=== PATIENT | female | born 1950 | race Caucasian/White ===

== ENCOUNTER 2023-11-05 14:01 | Emergency (ER) | payer MEDICARE, OTHER ==
[~2023-11-05] VITALS: Ht 167.6 cm; Wt 56.1 kg
[2023-11-05 14:09] VITALS: BP 193/71; PULSE 87; RESP 18; O2SAT 98
[2023-11-05] MEDS ORDERED: ketorolac trometh. 30mg/ml inj. IM ONE (14:15)
[2023-11-05] MEDS: ketorolac tromethamine 15mg/ml inj. IM ONE (14:49)
[2023-11-05] MEDS: dexamethasone sod phosphate 10mg/ml inj IM STA (14:49)
[2023-11-05] MEDS: ketorolac trometh. 30mg/ml inj. IM ONE (15:19)
[2023-11-05 15:52] VITALS: TEMP 97.6
== END 2023-11-05 15:53 | disposition home or self-care (01) ==
LOC: ER 14:02
DX: S39.011A Strain of muscle, fascia and tendon of abdomen, initial encounter (principal); R10.32 Left lower quadrant pain; M25.552 Pain in left hip; W19.XXXA Unspecified fall, initial encounter; Y93.89 Activity, other specified; Y92.89 Other specified places as the place of occurrence of the external cause; Y99.8 Other external cause status
CPT/HCPCS: 73502; 96372; 99283; J1885

== ENCOUNTER 2024-03-13 17:21 | Emergency (ER) | payer MEDICARE, OTHER ==
[~2024-03-13] VITALS: Ht 167.6 cm; Wt 55.3 kg
[2024-03-13 17:25] VITALS: BP 175/69; PULSE 85; RESP 16; O2SAT 96
[2024-03-13 18:23] VITALS: TEMP 98.3
== END 2024-03-13 18:27 | disposition home or self-care (01) ==
LOC: ER 17:22
DX: S76.312A Strain of muscle, fascia and tendon of the posterior muscle group at thigh level, left thigh, initial encounter (principal); W01.0XXA Fall on same level from slipping, tripping and stumbling without subsequent striking against object, initial encounter; Y93.89 Activity, other specified; Y92.89 Other specified places as the place of occurrence of the external cause; Y99.8 Other external cause status
CPT/HCPCS: 99281

== ENCOUNTER 2024-06-20 05:41 | Emergency (ER) | payer MEDICARE, OTHER ==
[~2024-06-20] VITALS: Ht 167.6 cm; Wt 47.6 kg
[2024-06-20 05:52] VITALS: BP 136/61; PULSE 82; TEMP 96.8; O2SAT 96
[2024-06-20 07:23] VITALS: RESP 16
[2024-06-20 07:59] LABS: BASOPHILS % (AUTO) 0.5 % (0-1); EOSINOPHILS % (AUTO) 0.1 % (0-6); HEMATOCRIT 36.3 % (35.0-45.0); HEMOGLOBIN 12.5 g/dl (12.0-16.0); LYMPHOCYTES # (AUTO) 1.4 X10'3 (1.1-4.8); LYMPHOCYTES % (AUTO) 15.7 % (21-51); MEAN CORPUSCULAR HEMOGLOBIN 31.1 PG (27.0-31.0); MEAN CORPUSCULAR HGB CONC 34.4 g/dL (33.0-36.5); MEAN CORPUSCULAR VOLUME 90.5 FL (78-98); MEAN PLATELET VOLUME 7.2 FL (7.4-10.4); MONOCYTES # (AUTO) 1.3 X10'3 (0-0.9); MONOCYTES % (AUTO) 14.7 % (2-12); NEUTROPHILS # (AUTO) 6.3 X10'3 (1.8-7.7); PLATELET COUNT 270 X10'3 (140-440); RED CELL DISTRIBUTION WIDTH 12.5 % (11.5-14.5); WHITE BLOOD COUNT 9.1 X10'3 (4.5-11.0)
[2024-06-20] MEDS ORDERED: iohexol 350MG/ML 100ml bottle IV ONE ×2 (08:13→13:57)
[2024-06-20 08:23] LABS: ALANINE AMINOTRANSFERASE 16 U/L (12-78); ALBUMIN 3.6 G/DL (3.4-5.0); ALKALINE PHOSPHATASE 68 IU/L (46-116); ANION GAP 7 (8-16); ASPARTATE AMINO TRANSFERASE 13 U/L (10-37); BILIRUBIN,TOTAL 0.5 MG/DL (0.1-1.0); BLOOD UREA NITROGEN 10 MG/DL (7-18); BUN/CREATININE RATIO 15.6 (10.0-20.0); CALCIUM 9.1 MG/DL (8.5-10.1); CHLORIDE 103 MMOL/L (99-107); CREATINE KINASE 68 U/L (26-192); CREATININE 0.64 MG/DL (0.40-0.90); GLUCOSE 119 MG/DL (70-104); LIPASE 50 U/L (16-77); MAGNESIUM 2.3 MG/DL (1.5-2.4); POTASSIUM 4.4 MMOL/L (3.5-5.1); SODIUM 138 MMOL/L (135-145); TOTAL CARBON DIOXIDE 27.8 MMOL/L (24-32); TOTAL PROTEIN 7.3 G/DL (6.4-8.2); eCRCL 61 ML/MIN; eGFR > 90 ML/MIN
[2024-06-20] MEDS ORDERED: CefTRIAXone 2gm/NS 100ml IVPB 50 ML IV ONE (09:45)
[2024-06-20] MEDS ORDERED: AMOX-117 PO (09:45)
[2024-06-20] MEDS ORDERED: AZIT-164 PO (09:45)
[2024-06-20] MEDS ORDERED: CefTRIAXone 2gm/D5W 50ml BAG 50 ML IV ONE (09:54)
[2024-06-20] MEDS: azithromycin/NS 500mg/250ml 250 ML IV ONE (10:12)
[2024-06-20] MEDS: CefTRIAXone 2gm/D5W 50ml BAG 50 ML IV ONE (10:20)
== END 2024-06-20 12:13 | disposition home or self-care (01) ==
LOC: ER 05:42
DX: M54.6 Pain in thoracic spine (principal); J18.9 Pneumonia, unspecified organism
CPT/HCPCS: 36415; 71275; 74174; 80053; 82550; 83690; 83735; 84484; 85025; 85379; 93005; 96365; 96368; 99285; J0456; J0696; Q9967

== ENCOUNTER 2024-07-15 14:07 | Emergency (ER) | payer MEDICARE, OTHER ==
[~2024-07-15] VITALS: Ht 167.6 cm; Wt 55.9 kg
[2024-07-15 15:22] LABS: BASOPHILS # (AUTO) 0.1 X10'3 (0-0.2); BASOPHILS % (AUTO) 0.7 % (0-1); EOSINOPHILS # (AUTO) 0.4 X10'3 (0-0.9); EOSINOPHILS % (AUTO) 4.9 % (0-6); HEMATOCRIT 39.5 % (35.0-45.0); HEMOGLOBIN 13.1 g/dl (12.0-16.0); LYMPHOCYTES # (AUTO) 2.3 X10'3 (1.1-4.8); LYMPHOCYTES % (AUTO) 26.4 % (21-51); MEAN CORPUSCULAR HEMOGLOBIN 30.2 PG (27.0-31.0); MEAN CORPUSCULAR HGB CONC 33.3 g/dL (33.0-36.5); MEAN CORPUSCULAR VOLUME 90.7 FL (78-98); MEAN PLATELET VOLUME 7.3 FL (7.4-10.4); MONOCYTES # (AUTO) 0.8 X10'3 (0-0.9); MONOCYTES % (AUTO) 8.7 % (2-12); NEUTROPHILS # (AUTO) 5.2 X10'3 (1.8-7.7); NEUTROPHILS % (AUTO) 59.3 % (42-75); PLATELET COUNT 374 X10'3 (140-440); RED BLOOD COUNT 4.35 X10'6 (4.20-5.60); RED CELL DISTRIBUTION WIDTH 13.4 % (11.5-14.5); WHITE BLOOD COUNT 8.7 X10'3 (4.5-11.0)
[2024-07-15 15:45] LABS: APTT 24 SECONDS (22-32); PROTHROMBIN TIME 10.1 SECONDS (9.0-12.0)
[2024-07-15 16:05] LABS: ALANINE AMINOTRANSFERASE 21 U/L (12-78); ALBUMIN 4.1 G/DL (3.4-5.0); ALBUMIN/GLOBULIN RATIO 1.1 (1.1-1.5); ALKALINE PHOSPHATASE 83 IU/L (46-116); ANION GAP 9 (8-16); ASPARTATE AMINO TRANSFERASE 15 U/L (10-37); BILIRUBIN,TOTAL 0.5 MG/DL (0.1-1.0); BLOOD UREA NITROGEN 14 MG/DL (7-18); BUN/CREATININE RATIO 20.9 (10.0-20.0); CHLORIDE 105 MMOL/L (99-107); CREATININE 0.67 MG/DL (0.40-0.90); GLUCOSE 100 MG/DL (70-104); PRO BRAIN NATRIURETIC PEPTIDE 51 PG/ML (0-125); SODIUM 141 MMOL/L (135-145); TOTAL CARBON DIOXIDE 26.7 MMOL/L (24-32); TOTAL PROTEIN 7.9 G/DL (6.4-8.2); eCRCL 68 ML/MIN; eGFR 87 ML/MIN
[2024-07-15 17:34] VITALS: BP 132/78; PULSE 74; RESP 16; TEMP 98.5; O2SAT 98
== END 2024-07-15 17:35 | disposition home or self-care (01) ==
LOC: ER 14:07
DX: M54.50 Low back pain, unspecified (principal)
CPT/HCPCS: 36415; 71045; 80053; 83605; 83880; 84145; 84484; 85025; 85610; 85730; 87040; 93005; 99285